=== PATIENT | female | born 1965 | race Caucasian/White ===

== ENCOUNTER → 2016-11-04 | Day surgery (SDC) | payer BC ==
[2016-11-03 15:50] LABS: INR 0.93 (0.9-1.15); Partial Thromboplastin Time 28.6 sec (22.64-33.71); Prothrombin Time 10.1 sec (9.37-12.3)
[2016-11-03 15:54] LABS: Basophils # (auto) 0 uL; Basophils % (auto) 0.4 % (0.0-2.0); Eosinophils # (auto) 0.1 uL; Eosinophils % (auto) 1.3 % (0.0-7.0); Hematocrit 38.1 % (36.0-46.0); Hemoglobin 12.7 g/dL (12.2-16.2); Lymphocytes # (auto) 1.5 uL; Lymphocytes % (auto) 25.3 % (10.0-50.0); Mean Corpuscular Hemoglobin 31.8 pg (28.0-32.0); Mean Corpuscular Hgb Conc. 33.4 g/dL (32.0-36.0); Mean Corpuscular Volume 95.3 fL (80.0-100.0); Mean Platelet Volume 7.8 fL (6.9-10.8); Monocytes # (auto) 0.4 uL; Monocytes % (auto) 7.3 % (0.0-12.0); Neutrophils % (auto) 65.7 % (37.0-80.0); Platelet Count (auto) 258 10^3/uL (140-450); Red Cell Distribution Width 14.2 % (11.8-14.3); White Blood Cell 6.1 10^3/uL (4.4-10.8)
[2016-11-03 16:04] LABS: Albumin 3.3 g/dL (3.4-5.0); BUN/Creatinine Ratio 33.3; Bilirubin, Total 0.2 mg/dL (0.2-1.0); Calcium 8.4 mg/dL (8.5-10.1); Potassium 3.9 mmol/L (3.5-5.1); Total Protein 6.6 g/dL (6.4-8.2)
[~2016-11-04] VITALS: Ht 160 cm; Wt 99.8 kg
[~2016-11-04] MED LIST: BUPIVACAINE 0.75% INJ 10ML MPV SDV IJ ONE; LEVOFLOXACIN 500 MG/100 ML PREMIX BAG IV ONE; MIDAZOLAM HCL 1MG/1ML-2 ML VIAL ONE; ONDANSETRON HCL 4 MG/2 ML VIAL IV ONE; PROPOFOL 10 MG/ML 20 ML IV ONE; ROPIVACAINE 0.5% (5MG/ML) 20ML AMPULE IJ ONE; ceFAZolin 1GM VL ONE; ePHEDrine SULFATE 50 MG/ML AMP IV PRN; fentaNYL CITRATE 100 MCG/2 ML VL ONE; hydrALAZINE HCL 20 MG/ML VL IV PRN
[2016-11-04] MEDS: HYDROmorphone HCL 2 MG/ML VL IV PRN ×4 (12:18→12:52)
[2016-11-04 13:25] VITALS: BP 117/78
== END | disposition home or self-care (01) ==
LOC: SUR 07:22
PROVIDERS: ATTEND Podiatrist Foot & Ankle Surgery
DX: M20.41 Other hammer toe(s) (acquired), right foot (principal); M20.11 Hallux valgus (acquired), right foot; M21.611 Bunion of right foot; M21.621 Bunionette of right foot; Z88.0 Allergy status to penicillin; Z88.6 Allergy status to analgesic agent; Z88.2 Allergy status to sulfonamides; Z88.1 Allergy status to other antibiotic agents; Z90.710 Acquired absence of both cervix and uterus
CPT/HCPCS: 28285; 28292; 28296; 36415; 73620; 76000; 80053; 85025; 85610; 85730; C1713; C1769; J0690; J1170; J1956; J2250; J2704; J2795; J3010; J3490; L3260; V2790

== ENCOUNTER → 2023-01-18 | Outpatient (CLI) | payer BC | END | disposition home or self-care (01) | LOC: LAB 09:27 | PROVIDERS: ATTEND Nurse Practitioner | DX: U07.1 COVID-19 (principal) ==